=== PATIENT | female | born 1995 | race Caucasian/White ===

== ENCOUNTER 2018-02-21 17:17 | Emergency (ER) | payer OTHER ==
[2018-02-21 17:30] VITALS: BP 130/92
--- NOTE | 2018-02-21 17:31 | UC ---
Abdominal Pain Female HPI - HPI Summary HPI Summary: 22 yo female presents with diarrhea. She tells me that 3 days ago she had a cristina latte and a bagel with cream cheese - later that night developed loose stools. Has a hx of mild lactose intolerance and thought this was why she had loose stools, however her loose stools have persisted into today. She is having 4-5 bowel movements a day. She is able to eat, but doesn't have much of an appetite. She ate cranberries yesterday and noticed red chunks in her stool today that concerned her for blood. Also has some generalized abdominal cramping. She also mentions that about a month ago she was [place] in [place] and had a "big gulp" of [place]. Denies fever, chills, vomiting, dysuria. - History of Current Complaint Chief Complaint: UCGI Stated Complaint: DIARRHEA Time Seen by Provider: 02/21/18 17:27 Hx Obtained From: Patient Hx Last Menstrual Period: 3 wks ago Onset/Duration: Sudden Onset Severity Initially: Mild Severity Currently: Mild Pain Intensity: 1 Pain Scale Used: 0-10 Numeric Allergies/Adverse Reactions: Allergies Allergy/AdvReac Type Severity Reaction Status Date / Time No Known Allergies Allergy Verified 02/21/18 17:30 Home Medications: Home Medications NK [No Home Medications Reported] 02/21/18 [History Confirmed 02/21/18] PMH/Surg Hx/FS Hx/Imm Hx - Additional Past Medical History Additional PMH: None - Surgical History Surgical History: None - Family History Known Family History: Positive: None - Social History Occupation: Student Lives: Dormitory/Roommates Alcohol Use: Occasionally Substance Use Type: None Smoking Status (MU): Never Smoked Tobacco Review of Systems Constitutional: Negative Skin: Negative Respiratory: Negative Cardiovascular: Negative Gastrointestinal: Abdominal Pain, Diarrhea Genitourinary: Negative Neurovascular: Negative Neurological: Negative Psychological: Negative All Other Systems Reviewed And Are Negative: Yes Physical Exam - Summary Physical Exam Summary: GENERAL: NAD. WDWN. No pain distress. SKIN: No rashes, sores, lesions, or open wounds. NECK: Supple. Nontender. No lymphadenopathy. CHEST: CTAB. No r/r/w. No accessory muscle use. Breathing comfortably and in no distress. CV: RRR. Without m/r/g. Pulses intact. Cap refill <2seconds ABDOMEN: Mild generalized TTP. Soft. No distention or guarding. No CVA tenderness. Bowel sounds present NEURO: Alert. PSYCH: Age appropriate behavior. Triage Information Reviewed: Yes Vital Signs: Initial Vital Signs Temp 97.8 F 02/21/18 17:27 Pulse 75 02/21/18 17:27 Resp 12 02/21/18 17:27 BP 130/92 02/21/18 17:27 Pulse Ox 100 02/21/18 17:27 Vital Signs Reviewed: Yes Abd Pain Female Course/Dx - Course Course Of Treatment: Suspect gastroenteritis. She has pictures of her stool from earlier and the red chunks appear obvious cranberries/cranberry skins. Today I offered fluids and zofran today, but pt declined as she is under a lot of stress at college and needs to get home to finish a paper. Advised to drink plenty of clear fluids and try a BRAT diet. Will send stool for culture and f/u if her symptoms persist. - Differential Dx/Diagnosis Provider Diagnoses: Diarrhea Discharge - Sign-Out/Discharge Documenting (check all that apply): Patient Departure All imaging exams completed and their final reports reviewed: No Studies - Discharge Plan Condition: Stable Disposition: HOME Patient Education Materials: Acute Diarrhea (ED) Referrals: No Primary Care Phys,NOPCP [Primary Care Provider] - Additional Instructions: If you develop a fever, shortness of breath, chest pain, new or worsening symptoms - please call your PCP or go to the ED. Your blood pressure was high at todays visit. Please see your primary provider within 4 weeks for recheck and re-evaluation. 1) Drink plenty of clear fluids 2) Try BRAT diet - Bananas, Rice, Applesauce, Crab[place] and advance your diet as tolerated - Billing Disposition and Condition Condition: STABLE Disposition: Home
== END 2018-02-21 17:57 | disposition home or self-care (01) ==
LOC: UCEAST 17:17
DX: R19.7 Diarrhea, unspecified (principal); R03.0 Elevated blood-pressure reading, without diagnosis of hypertension
CPT/HCPCS: 99201; G0463